=== PATIENT | female | born 1965 | race Caucasian/White ===

== ENCOUNTER 2021-11-29 15:51 | Emergency (ER) | payer BC, OTHER ==
[2021-11-29 16:19] VITALS: BP 128/74; PULSE 69; TEMP 98.3; BMI 30.1
[2021-11-29] MEDS ORDERED: SODIUM CHLORIDE 0.9% 1000 ML INFUS.BAG IV ONE (17:01)
[2021-11-29] MEDS ORDERED: ACETAMINOPHEN 1000 MG/100 ML BAG IVPB ONE (17:01)
[2021-11-29] MEDS ORDERED: FAMOTIDINE 20 MG/50 ML IVPB 20 MG/50 ML MG IVPB ONE (17:02)
[2021-11-29] MEDS ORDERED: ACETAMINOPHEN INJECTION 100 ML IVPB ONE (17:08)
[2021-11-29] MEDS ORDERED: FAMOTIDINE 10 MG/ML VIAL IVPB ONE (17:09)
[2021-11-29 17:57] LABS: BASO % 0.6 % (0-2.0); EOS % 2.8 % (0-4.5); HEMATOCRIT 34.7 % (32.4-45.2); HEMOGLOBIN 11.9 GM/dL (10.7-15.3); LYMPH % 33.8 % (8-40); MCH 28.1 pg (25.7-33.7); MCHC 34.2 g/dl (32.0-36.0); MEAN CELL VOLUME 82.2 fl (80-96); MONO % 15.6 % (3.8-10.2); NEUT % 47.2 % (42.8-82.8); PLATELET COUNT 216 10^3/uL (134-434); RBC 4.22 M/mm3 (3.60-5.2); RDW 15.1 % (11.6-15.6); WHITE BLOOD COUNT 3.8 K/mm3 (4.0-10.0)
[2021-11-29 18:22] LABS: BLOOD UREA NITROGEN 16.2 mg/dL (7-18); CALCIUM 9.1 mg/dL (8.5-10.1)
[2021-11-29 18:24] LABS: CREATININE 0.7 mg/dL (0.55-1.3)
[2021-11-29 18:27] LABS: ALBUMIN 3.5 g/dl (3.4-5.0); BILIRUBIN,TOTAL 0.3 mg/dL (0.2-1); TOT PROT 6.8 g/dl (6.4-8.2)
[2021-11-29] MEDS ORDERED: ONDANSETRON 4 MG/2 ML VIAL IVPUSH ONE (19:57)
== END 2021-11-29 21:41 | disposition home or self-care (01) ==
LOC: JER 15:51
PROC: 3E0333Z Introduction of Anti-inflammatory into Peripheral Vein, Percutaneous Approach (ICD-10-PCS; principal; 2021-11-29)
PROC: 3E033GC Introduction of Other Therapeutic Substance into Peripheral Vein, Percutaneous Approach (ICD-10-PCS; 2021-11-29)
PROC: 3E033GC Introduction of Other Therapeutic Substance into Peripheral Vein, Percutaneous Approach (ICD-10-PCS; 2021-11-29)
DX: R00.2 Palpitations (principal)
CPT/HCPCS: 36415; 71275-TC; 80053; 85025; 87040; 87804; 93005; 93010; 99285-25

== ENCOUNTER 2023-12-02 12:07 | Observation (INO) | payer BC ==
[2023-12-02] MEDS ORDERED: MECLIZINE HCL 25 MG TABLET (FP) ONE (13:24)
[2023-12-02] MEDS ORDERED: METOCLOPRAMIDE HCL INJECTION 10 MG/2 ML VIAL ONE (13:25)
[2023-12-02] MEDS: METOCLOPRAMIDE HCL INJECTION 10 MG/2 ML VIAL IVPB ONE (14:08)
[2023-12-02] MEDS: MECLIZINE HCL 25 MG TABLET (FP) PO ONE ×2 (14:08→21:54)
[2023-12-02] MEDS: SODIUM CHLORIDE 0.9% 500 ML INFUS.BAG IV ONE (14:08)
[2023-12-02 14:35] LABS: BASO % 0.7 % (0-2.0); EOS % 2.1 % (0-4.5); HEMOGLOBIN 12.3 GM/dL (10.7-15.3); LYMPH % 36.3 % (8-40); MCH 28.7 pg (25.7-33.7); MCHC 33.2 g/dl (32.0-36.0); MEAN CELL VOLUME 86.5 fl (80-96); MONO % 7.1 % (3.8-10.2); NEUT % 53.8 % (42.8-82.8); PLATELET COUNT 224 10^3/uL (134-434); RBC 4.28 M/mm3 (3.60-5.2); WHITE BLOOD COUNT 5.1 K/mm3 (4.0-10.0)
[2023-12-02 14:42] LABS: INR 0.98 (0.83-1.09); PROTHROMBIN TIME (PATIENT) 11.1 SEC (9.7-13.0)
[2023-12-02 14:45] LABS: ACTIVATED PTT 27.4 SECONDS (25.2-36.5)
[2023-12-02 14:56] LABS: ALBUMIN 3.7 g/dl (3.4-5.0); BLOOD UREA NITROGEN 19.6 mg/dL (7-18)
[2023-12-02 15:01] LABS: BILIRUBIN,TOTAL 0.3 mg/dL (0.2-1); TOT PROT 6.8 g/dl (6.4-8.2)
[2023-12-02 15:05] LABS: CREATININE 0.9 mg/dL (0.55-1.3)
[2023-12-02 17:05] LABS: PH,URINE 6.5 (5.0-8.0); URINE APPEARANCE CLEAR; URINE BILIRUBIN NEGATIVE (NEGATIVE); URINE COLOR YELLOW; URINE GLUCOSE (UA) NEGATIVE (NEGATIVE); URINE KETONE NEGATIVE (NEGATIVE); URINE LEUK ESTERASE NEGATIVE (NEGATIVE); URINE NITRITE NEGATIVE (NEGATIVE); URINE PROTEIN NEGATIVE (NEGATIVE)
[2023-12-02] MEDS ORDERED: CELECOXIB 200 MG CAPSULE PO PRN (20:19)
[2023-12-02] MEDS: LACTATED RINGERS SOLUTION 1,000 ML IV SCH (21:55)
[2023-12-02] MEDS ORDERED: MECLIZINE HCL 25 MG TABLET (FP) PO PRN (22:00)
[2023-12-02 23:44] VITALS: BMI 32.4
[2023-12-03] MEDS: MECLIZINE HCL 25 MG TABLET (FP) PO SCH (09:26)
[2023-12-03] MEDS: TOPIRAMATE 25 MG TABLET PO SCH (09:27)
[2023-12-03] MEDS: PANTOPRAZOLE 40 MG TABLET PO SCH (09:27)
[2023-12-03] MEDS: ENOXAPARIN NA (PORCINE) 40 MG/0.4 ML DISP.SYRIN SQ SCH (09:27)
[2023-12-03] MEDS: ASPIRIN 81 MG CHEWABLE TABLETS PO SCH (09:27)
[2023-12-03 13:10] LABS: N-TERMINAL BNP 51.2 pg/ml (5-125)
[2023-12-04 06:15] VITALS: BP 125/77; PULSE 61; RESP 18; TEMP 98.1
== END 2023-12-04 10:20 | disposition home or self-care (01) ==
LOC: JER 12:07 → JERBED 16:46 → J4W 18:33
PROVIDERS: ADMIT Internal Medicine; ATTEND Family Medicine
PROC: 3E0337Z Introduction of Electrolytic and Water Balance Substance into Peripheral Vein, Percutaneous Approach (ICD-10-PCS; principal; 2023-12-02)
PROC: 3E033GC Introduction of Other Therapeutic Substance into Peripheral Vein, Percutaneous Approach (ICD-10-PCS; 2023-12-02)
DX: I48.91 Unspecified atrial fibrillation (principal); R27.0 Ataxia, unspecified; G43.809 Other migraine, not intractable, without status migrainosus; G25.81 Restless legs syndrome; I10 Essential (primary) hypertension; Z96.651 Presence of right artificial knee joint; G89.29 Other chronic pain; M54.9 Dorsalgia, unspecified
CPT/HCPCS: 36415; 70450-TC; 70544-TC; 70551-TC; 71045-TC-FY; 80053; 81003; 83880; 84443; 84484; 85025; 85610; 85730; 87086; 93005; 93010; 97116-GP; 97162-GP; 99285-25; G0378